=== PATIENT | female | born 1990 | race Caucasian/White ===

== ENCOUNTER → 2017-11-21 | Outpatient (CLI) | END | disposition home or self-care (01) ==

== ENCOUNTER 2018-06-13 11:02 | Inpatient (IN) | payer MEDICAID ==
[~2018-06-13] VITALS: Ht 149.9 cm; Wt 56.4 kg
[~2018-06-13 11:02] MED LIST: CALC600T24 PO; FERR-31 PO; IBUP-1542 PO; PRENAT PO
[2018-06-13 11:14] VITALS: Ht 149.9 cm; Wt 56.4 kg
[2018-06-13 11:15] VITALS: BP 93/51; PULSE 75
--- NOTE | 2018-06-13 14:24 | PN ---
Triage Information Date/Time 06/13/2018 Reason for visit: Vag spotting / bleeding (Patient was complaining of vaginal bleeding yesterday) Weeks of Gestation 38 weeks and 2 days /Para 3 para 1 Diabetes: none Hypertention: none Objective Vital Signs Date Temp Pulse Resp B/P (MAP) Pulse Ox O2 O2 Flow FiO2 Time Delivery Rate 06/13/18 97.9 75 93/51 (65) Room Air 11:15 Heart Rate: 140's Heart Rate Comments Reactive Patient has regular uterine contractions Contractions: < 5 Minutes Apart Exam Long and fingertip Results/Medications Results 24 hrs Laboratory Tests Test 06/13/18 11:40 Urine Color YELLOW Urine Clarity SLIGHTLY CLOUDY A Urine pH 6.0 Urine Specific Romance 1.020 Urine Ketones NEGATIVE Urine Nitrite NEGATIVE Urine Bilirubin NEGATIVE Urine Urobilinogen 1+ H Urine Leukocyte Esterase 1+ H Urine Microscopic RBC > 182 H Urine Microscopic WBC 38 H Urine Squamous Epithelial Cells MODERATE Urine Mucus FEW A Urine Hemoglobin 3+ H Urine Glucose 1+ H Urine Total Protein NEGATIVE Imaging Results Normal biophysical profile. Disposition: Discharge Assessment/Plan We will empirically treat patient for urinary tract infection Continue to observe and ambulate for 2 hours if there is no cervical change will DC home Liver precautions given to patient in regards to regular uterine contractions rupture membrane and or profuse vaginal bleeding to refer to OB triage Continue care if last for more than a few days STEPHANIE TUCKER MD Jun 13, 2018 14:24
[2018-06-13] MEDS ORDERED: LACTATED RINGER'S 1,000 ML IV SCH (14:50)
[2018-06-13] MEDS ORDERED: BUTORPHANOL 2 MG INJ IV PRN (15:00)
[2018-06-13] MEDS ORDERED: METHYLERGONOVINE 0.2 MG INJ IM PRN ×2 (15:00→21:00)
[2018-06-13] MEDS ORDERED: OXYTOCIN 30 UNITS/LR 500 ML IV SCH ×3 (15:00)
[2018-06-13] MEDS ORDERED: IBUPROFEN 600 MG TAB PO PRN (15:00)
[2018-06-13] MEDS ORDERED: MISOPROSTOL 200 MCG TAB PR PRN ×2 (15:00→21:00)
[2018-06-13] MEDS ORDERED: CARBOPROST 250 MCG INJ IM PRN ×2 (15:00→21:00)
[2018-06-13] MEDS ORDERED: LIDOCAINE 1% (MPF) 30 ML INJ INJ PRN (15:00)
[2018-06-13] MEDS ORDERED: OXYTOCIN 30 UNITS/LR 500 ML IV PRN ×2 (15:00→21:00)
[2018-06-13] MEDS ORDERED: MISOPROSTOL 50 MCG CAPSULE VAG ONE (15:00)
--- NOTE | 2018-06-13 18:53 | LDN ---
Date/Time of Note Date/Time of Note DATE: 06/13/18 TIME: 18:50 Delivery Summary prolong bradycardia to 90's 8cm OP after manual rotation to OA 2nd lperineal laceration Weeks of Gestation 38w2d Placenta Delivered: Spontaneously, Intact & Complete Meconium: none Episiotomy: No Perineal laceration: 2 Laceration repair: 00 ch gut Anesthesia type: Local Estimated blood loss: 200 Sponge & Needle done & correct: Yes All needle counts correct: Yes Any foreign bodies felt in the: No Delivery Information Sex Sex: female Apgars 1 Minute: 8 5 Minute: 9 Suctioning Nose & mouth suctioned at luisa: Yes Delee suction performed: Yes Umbilical Cord Umbilical cord with: 3 Vessels Cord presentations: no nuchal cord Cord Blood was obtained: Yes Mother & Baby Disposition Disposition Mom & Baby to Maternity; Good: Yes Mom transferred to: Other Baby to NICU: No () SOFIA RIBERA MD Jun 13, 2018 18:53
[2018-06-13] MEDS ORDERED: OXYCODONE/ASPIRIN (4.88/325) TAB PO PRN ×3 (20:39→21:00)
[2018-06-13 21:00] VITALS: BP 102/69; PULSE 83; RESP 19
[2018-06-13] MEDS ORDERED: BENZOCAINE 20% 56 ML SPRAY TOP PRN (21:00)
[2018-06-13] MEDS ORDERED: ZOLPIDEM 5 MG TAB PO PRN (21:00)
[2018-06-13] MEDS ORDERED: LANOLIN HPA 1 PKT TOP PRN (21:00)
[2018-06-13] MEDS ORDERED: WITCH HAZEL/GLYCERIN PAD PR PRN (21:00)
[2018-06-13 22:00] VITALS: BP 113/73; PULSE 89; RESP 18
[2018-06-13] MEDS: SENNA/DOCUSATE NA (8.6MG/50MG) TAB PO SCH (22:28)
[2018-06-13] MEDS: IBUPROFEN 600 MG TAB PO SCH (23:57)
[2018-06-14 04:00] VITALS: BP 108/63; PULSE 63; RESP 19
[2018-06-14] MEDS: IBUPROFEN 600 MG TAB PO SCH ×3 (05:51→17:52)
[2018-06-14 07:50] VITALS: BP 97/54; PULSE 80; RESP 18
[2018-06-14] MEDS: SENNA/DOCUSATE NA (8.6MG/50MG) TAB PO SCH ×2 (09:09→20:49)
[2018-06-14 11:40] VITALS: BP 97/54; PULSE 72; RESP 18
--- NOTE | 2018-06-14 16:07 | HP ---
Date/Time of Note Date/Time of Note DATE: 06/14/18 TIME: 16:03 OB - History Hx of Present Last Menstrual Period: Sep 18, 2017 Estimated Due Date: Jun 25, 2018 : 3 Para: 1 Spontaneous : 1 Care: Good Care Ultrasounds: Normal mid trimester US Obstetrical Complications: None Medical Complications: None Past Family/Social History * Past Medical, Surgical, Family and Obstetric Histories reviewed from chart. Blood Type: O+ Rubella: immune RPR/VDRL: Negative GBS Status: Negative HBsAG: Negative OB Admission Exam Vital Signs Vital Signs Vital Signs Date Temp Pulse Resp B/P (MAP) Pulse Ox O2 O2 Flow FiO2 Time Delivery Rate 06/14/18 98.5 80 18 97/54 (68) Room Air 07:50 Physical Exam HEENT: WNL Heart: Rhythm Normal Lungs: Clear, Equal Abdomen: WNL Extremities: Normal Reflexes: Normal Cervical Dilatation: 3cm Effacement: 100% Station: -2 Membranes: Intact Heart Rate: 140's Accelerations: Accelerations Present Decelerations: No Decelerations Varibility: Marked Contractions on Admission: < 5 Minutes Apart Date/Time Contractions Began: ? Frequency of Contractions: ? Duration: ? Intensity: Mild Last 72 hours Lab Results CBC & BMP 06/13/18 15:10 06/14/18 08:22 OB Assessment/Plan Other Assessment: Term gestation. Labor pains Other plan: Proceed with labor and vaginal delivery anticipated STEPHANIE TUCKER MD Jun 14, 2018 16:07
--- NOTE | 2018-06-14 16:23 | DS ---
Date/Time of Note Date/Time of Note Home today or next day DATE: 06/14/18 TIME: 16:23 Obstetrical Discharge Record Final Diagnosis Final Diagnosis: Term delivered Other Final Diagnosis Status post vaginal delivery Vaginal Delivery Obstetrical Delivery: Spontaneous, Laceration, Repaired Condition on Discharge Physical Assessment Last Vitals: See nurse's notes Voiding: Yes Bowel Movement: Yes Breast: Soft, non-tender, Filling Fundus: Firm Abdomen and Incision: Abdomen is soft with present bowel sounds and fundus is firm Episiotomy: Perineum appears to be healing well and appears clean Calf Tenderness: No Patient Condition: Good STEPHANIE TUCKER MD Jun 14, 2018 16:23
--- NOTE | 2018-06-14 16:27 | PD.PPDC ---
[employer] Discharge Instruction Provider Information Physician Information 27-year-old female had vaginal delivery Diagnosis [id number] Final Diagnosis: Teaor5b Status post vaginal delivery Condition [id number] Patient Condition: Isjyw9a Good Diet Xnfqw2Jg Diet: Vxjaz7j Resume Regular Diet Activity/Restrictions [id number] Activity: Pinmi0s Normal Activity May Shower [id number] Restrictions: Kaofu2f Nothing in the Vagina Iwnba0Gd Return to Work or School: [id number] Jul 28, 2018 Follow-up Follow-up with Physician: 2, 4, Week/Weeks (In clinic for follow-up) Return to clinic for [id number] OB Instructions: Zlgcz5p Breast Tenderness Depression Comment: Pelvic rest for 6 weeks STEPHANIE TUCKER MD Jun 14, 2018 16:27
[2018-06-14] MEDS ORDERED: IBUP-1542 PO (16:28)
[2018-06-14 16:55] VITALS: BP 109/63; PULSE 71; RESP 16
[2018-06-14 20:30] VITALS: BP 99/53; PULSE 77; RESP 18
[2018-06-15] MEDS: IBUPROFEN 600 MG TAB PO SCH ×3 (00:03→11:33)
[2018-06-15 03:47] VITALS: BP 96/51; PULSE 69; RESP 18
[2018-06-15 08:30] VITALS: BP 93/53; PULSE 83; RESP 18
[2018-06-15] MEDS ORDERED: DIPHTH/TET/ACEL PERTUSS (ADULT) 0.5 ML VIAL IM* ONE (09:00)
[2018-06-15] MEDS: SENNA/DOCUSATE NA (8.6MG/50MG) TAB PO SCH (09:37)
[2018-06-15 15:13] VITALS: BP 94/60; PULSE 73; RESP 18
--- NOTE | 2018-06-16 14:31 | NSTRPT ---
NST Information Datetime Report Generated by CPN: 06/16/2018 14:31 Datetime: 06/11/2018 14:59 NST Information EGA: 38.0 Datetime: 06/11/2018 14:45 Test Number: 1 Time on Monitor: 06/11/2018 15:39 Time off Monitor: 06/11/2018 16:02 NST Duration (Min): 23 Reason for NST: Poor Growth Test and Monitor Explained: Monitor Explained; Test Explained; Verbalized Understanding Pulse: 75 Resp: 18 SBP: 90 DBP: 54 Test Evaluation NST Interventions: None Patient States Movement: Present Contraction Frequency: X1(denies) FHR Baseline : 140 Variability: Moderate 6-25bpm Accelerations: 15X15 FHR Category: Category I NST Results: Reactive Comments: pt to u/s.BRIAN 12.7cm. CEPHALIC. 2981gm. 30%, AC:49%. Electronically Signed By E-Signature: with User ID: [id number]
== END 2018-06-15 16:15 | disposition home or self-care (01) | DRG 807 ==
LOC: OBT 11:02 → L-D 11:03 → OBT 15:00 → L-D 15:00 → PP1 20:59
PROVIDERS: ADMIT Obstetrics & Gynecology; ATTEND Obstetrics & Gynecology
PROC: 10E0XZZ Delivery of Products of Conception, External Approach (ICD-10-PCS; principal; 2018-06-13)
PROC: 0KQM0ZZ Repair Perineum Muscle, Open Approach (ICD-10-PCS; 2018-06-13)
PROC: 3E033VJ Introduction of Other Hormone into Peripheral Vein, Percutaneous Approach (ICD-10-PCS; 2018-06-13)
DX: O70.1 Second degree perineal laceration during delivery (principal); Z37.0 Single live birth; Z3A.38 38 weeks gestation of pregnancy
CPT/HCPCS: 76818; 81001; 85025; 85610; 85730; 86592; 86850; 86870; 86900; 86901; 86902; 87340; 99464; G0463; J2590; J7120